=== PATIENT | female | born 1935 | race Caucasian/White ===

== ENCOUNTER 2024-12-07 01:12 | Inpatient (IN) | payer OTHER ==
[~2024-12-07] VITALS: Ht 167.6 cm; Wt 52.8 kg
[2024-12-07 01:41] LABS: Urine Bacteria None Seen /hpf (None Seen)
[2024-12-07 01:46] VITALS: PULSE 60; RESP 12; O2SAT 96
[2024-12-07 01:55] LABS: Urine Blood Negative /uL (Negative); Urine Clarity Clear (Clear); Urine Color Colorless (Yellow); Urine Protein, UAD Negative (Negative); Urine Specific Gravity 1.005 (1.001-1.035); Urine Squamous Epithelial Cell FEW /hpf (<5); Urine Urobilinogen Normal (Negative); Urine WBC 8 /HPF (0-5)
[2024-12-07 02:01] LABS: Basophils # (auto) 0.1 10 ^3/uL (0-0.2); Basophils % (auto) 0.6 % (0.0-2.0); Eosinophils # (auto) 0.1 10 ^3/uL (0-0.8); Eosinophils % (auto) 1.2 % (0.0-7.0); Hematocrit 41.4 % (36.0-46.0); Hemoglobin 13.6 g/dL (12.2-16.2); Lymphocytes # (auto) 1.7 10 ^3/uL (0.4-5.4); Lymphocytes % (auto) 14.9 % (10.0-50.0); Mean Corpuscular Hemoglobin 30.9 pg (28.0-32.0); Mean Corpuscular Hgb Conc. 32.9 g/dL (32.0-36.0); Mean Corpuscular Volume 93.8 fL (80.0-100.0); Monocytes # (auto) 1.2 10 ^3/uL (0-1.3); Monocytes % (auto) 10.7 % (0.0-12.0); Neutrophils # (auto) 8.5 10 ^3/uL (1.6-8.6); Neutrophils % (auto) 72.6 % (37.0-80.0); Nucleated Red Blood Cells % 0.1 %; Platelet Count (auto) 300 10^3/uL (140-450); Red Blood Cells 4.42 10^6/uL (4.0-5.20); Red Cell Distribution Width 14.4 % (11.8-14.3); White Blood Cell 11.7 10^3/uL (4.4-10.8)
--- NOTE | 2024-12-07 02:03 | ED.PDOC ---
History of Present Illness HPI Comments 89 y/o F is BIBA from home for c/o generalized weakness. Per EMS report, patient endorses on unprovoked and sudden onset of weakness 3 hours prior to arrival. No further associated symptoms reported. Vitals were noted to have stable and within normal limits, with exception of elevate systolic pressure within the 200's range. Patient has a history of HLD, HTN, PTCA, and 2x mini strokes in addition to Eliquis use. At time of assessment, patient inquires to use the bathroom prior to answering questions. She denies having any nausea, vomiting, diarrhea, dysuria, chest pain, or shortness of breath. 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 all IT INFRASTRUCTURE MANAGER Hx Family History Family History: Unknown Social History Smoker: Non-Smoker Alcohol: Denies ETOH Use Drugs: Denies Drug Use Lives In: Home All Other Systems: Reviewed and Negative (Comprehensive systems review obtained and negative except for what is stated in the HPI.) Physical Exam General Appearance: No Apparent Distress, Normal HEENT: Normal ENT Inspection, Pharynx Normal, TMs Normal Neck: Full Range of Motion, Non-Tender, Normal, Normal Inspection Respiratory: Chest Non-Tender, Lungs Clear, No Accessory Muscle Use, No Respiratory Distress, Normal Breath Sounds Cardiovascular: No Edema, No JVD, No Murmur, No Gallop, Normal Peripheral Pulses, Regular Rate/Rhythm Breast Exam: Deferred Gastrointestinal: No Organomegaly, Non Tender, No Pulsatile Mass, Normal Bowel Sounds, Soft Genitalia: Deferred Pelvic: Deferred Rectal: Deferred Extremities: No calf tenderness, Normal capillary refill, Normal inspection, Normal range of motion, Non-tender, No pedal edema Musculoskeletal : Apperance: Normal Neurologic: Alert, record filing clerk II-XII nml as Tested, No Motor Deficits, Normal Affect, Normal Mood, No Sensory Deficits Cerebellar Function: Normal Reflexes: Normal Skin: Dry, Normal Color, Warm Lymphatic: No Adenopathy Was a procedure done? Was a procedure done?: No Differential Dx Considerations may include: UTI, URI, viral syndrome, electrolyte imbalance, dehydration, intracranial bleed, among others X-Ray, Labs, Meds, VS Vital Signs Date Time Temp Pulse Resp B/P (MAP) Pulse Ox O2 Delivery O2 Flow Rate FiO2 12/07/24 03:56 61 14 179/78 (111) 93 12/07/24 01:46 60 12 96 Room Air* 0 21 12/07/24 01:45 60 12 195/82 (119) 96 12/07/24 01:20 98.2 65 16 202/96 (131) 96 98.2 12/07/24 01:15 59 Lab Test 12/07/24 03:00 12/07/24 01:52 12/07/24 01:32 Range/Units Troponin I High Sensitivity 25 23 </=34 ng/L White Blood Count 11.7 H 4.4-10.8 10^3/uL Red Blood Count 4.42 4.0-5.20 10^6/uL Hemoglobin 13.6 12.2-16.2 g/dL Hematocrit 41.4 36.0-46.0 % Mean Corpuscular Volume 93.8 80.0-100.0 fL Mean Corpuscular Hemoglobin 30.9 28.0-32.0 pg Mean Corpuscular Hemoglobin Concent 32.9 32.0-36.0 g/dL Red Cell Distribution Width 14.4 H 11.8-14.3 % Platelet Count 300 140-450 10^3/uL Mean Platelet Volume 8.5 6.9-10.8 fL Neutrophils (%) (Auto) 72.6 37.0-80.0 % Lymphocytes (%) (Auto) 14.9 10.0-50.0 % Monocytes (%) (Auto) 10.7 0.0-12.0 % Eosinophils (%) (Auto) 1.2 0.0-7.0 % Basophils (%) (Auto) 0.6 0.0-2.0 % Neutrophils # (Auto) 8.5 1.6-8.6 10 ^3/uL Lymphocytes # (Auto) 1.7 0.4-5.4 10 ^3/uL Monocytes # (Auto) 1.2 0-1.3 10 ^3/uL Eosinophils # (Auto) 0.1 0-0.8 10 ^3/uL Basophils # (Auto) 0.1 0-0.2 10 ^3/uL Nucleated Red Blood Cells 0.1 % Sodium Level 136 136-145 mmol/L Potassium Level 4.7 3.5-5.1 mmol/L Chloride Level 104 98-107 mmol/L Carbon Dioxide Level 24 20-31 mmol/L Anion Gap 8 5-15 Blood Urea Nitrogen 26 H 9-23 mg/dL Creatinine 1.37 H 0.550-1.02 mg/dL Glomerular Filtration Rate Calc 37 >90 mL/min BUN/Creatinine Ratio 19.0 10.0-20.0 Serum Glucose 105 74-106 mg/dL Calcium Level 9.1 8.7-10.4 mg/dL Urine Color Colorless Yellow Urine Clarity Clear Clear Urine pH 6.0 5.0-9.0 Urine Specific [place] 1.005 1.001-1.035 Urine Protein Negative Negative Urine Ketones Negative Negative Urine Blood Negative Negative /uL Urine Nitrite Negative Negative Urine Bilirubin Negative Negative Urine Urobilinogen Normal Negative mg/dL Urine Leukocyte Esterase 1+ Negative /uL Urine RBC 1 0 - 4 /hpf Urine Microscopic WBC 8 H 0-5 /HPF Urine Squamous Epithelial Cells Few <5 /hpf Urine Bacteria None seen None Seen /hpf Urine Glucose Normal Normal mg/dL [place] [id number] Ph: [phone] DIAGNOSTIC IMAGING Diagnostic Imaging Report : [id number] Signed PATIENT: KOMAL HALL ACCT: [id number] UNIT: [id number] : 1935 LOC: ER ROOM / BED: / AGE / SEX: 89 / F ADM STATUS: REG ER SERVICE 0133 ORDERING PHYSICIAN: ANGELA MEIER MD PROCEDURE(s): HWOCT - HEAD WITHOUT CONTRAST REASON: weakness, htn ORDER NUMBER(s): [id number], ACCESSION NUMBER(s): [id number] Examination: HWOCT CLINICAL INDICATION: ;weakness, htn COMPARISON: None. CONTRAST USED: None. TECHNIQUE: The examination was performed obtaining 5 mm slices without contrast. CT scan done according to ALARA (As Low as Reasonably Achievable). Multiplanar reconstructions were obtained. FINDINGS: SUPRATENTORIAL BRAIN: Cerebral Hemispheres: Mild age-related degenerative change with prominent sulci and basilar cisterns. Diffuse hypoattenuation in the deep periventricular white matter and in the vazquez radiata sequela of chronic microvascular ischemic disease. There is no midline shift or mass effect, intra or extra-axial fluid collections or hemorrhage. No acute abnormality in the basal ganglia. POSTERIOR FOSSA: The brainstem is normal and the visualized cerebellar hemispheres are unremarkable. VENTRICULAR SYSTEM: Mild age-related prominence of the ventricles. No evidence of hydrocephalus or transependymal flow of cerebrospinal fluid. SKULL BASE AND PARASELLAR REGION: The skull base is normal with no parasellar masses or abnormalities identified. Atherosclerotic calcification of the vertebral arteries and cavernous portion of bilateral internal carotid arteries. CALVARIUM AND SCALP REGION: No abnormality is seen. PARANASAL SINUSES: Mildly deviated nasal septum towards left. No significant inflammatory changes are identified in the paranasal sinuses. IMPRESSION: 1. Age-related degenerative change. Changes of chronic microvascular ischemic disease. 2. No acute intracranial abnormality or mass lesion. 3. Early changes of stroke may not be detected on CT scan, if strong clinical suspicion then suggest MRI with diffusion-weighted imaging. Electronically Signed 12/07/2024 03:48 Geraldo Padilla ATED BY: AUDI HAN MD DICTATED DATE/TIME: 12/07/24347 SIGNED BY: AUDI HAN MD SIGNED DATE/TIME: 12/07/24347 CC: [place] [id number] Ph: [phone] DIAGNOSTIC IMAGING Diagnostic Imaging Report : [id number] Signed PATIENT: KOMAL HALL ACCT: [id number] UNIT: [id number] : 1935 LOC: ER ROOM / BED: / AGE / SEX: 89 / F ADM STATUS: REG ER SERVICE 2 ORDERING PHYSICIAN: ANGELA MEIER MD PROCEDURE(s): CXRP - CHEST PORTABLE REASON: weakness ORDER NUMBER(s): [id number], ACCESSION NUMBER(s): [id number] Examination: CXRP Clinical Indication: Weakness. Comparison: None. Technique: Frontal radiograph of the chest was obtained. Findings: Patient is in rotation. Chronic appearing linear interstitial prominence and hyperlucency, likely from chronic lung disease. No pleural effusion on either side in current study. There is no pneumothorax. No evidence of cardiomegaly. Ectatic thoracic aorta with aortic knob calcification noted. No acute osseous abnormality is seen. Impression: No acute cardiopulmonary disease is seen. Electronically Signed 12/07/2024 03:31 Geraldo Padilla ATED BY: AUDI HAN MD DICTATED DATE/TIME: 12/07/24330 SIGNED BY: AUDI HAN MD SIGNED DATE/TIME: 12/07/24330 CC: Time of 1ST Reevaluation: 02:00 Reevaluation 1ST: Unchanged Patient Education/Counseling: Diagnosis, Treatment Family Education/Counseling: No Family Present Additional Information Previous visits reviewed: N/A The following tests were ordered, and results were reviewed by me: troponin, CXR, UA, CBC, BMP, EKG, head CT w/o contrast Additional Information was gathered from interviewing the following independent historians: EMS I reviewed and agreed with the following test results read by other providers: CXR, head CT w/o contrast I discussed treatment and results with medical personnel and: patient Departure 1 Departure Time of Disposition: 04:48 (Patient presented with hypertension and symptoms concerning for hypertensive emergency. Patient is receiving iv blood pressure medications requiring intensive monitoring. Data: 1. I ordered and reviewed the result of at least 3 labs including a CBC, BMP, and Urinalysis. 2. I independently interpreted the following tests: CT Brain: Which appears benign. EKG which is Normal Sinus RhythmRisk:This patient has a high risk of morbidity due to further diagnostic testing or treatment and may suffer from an acute cardiac disorder. Workup reveals hypertensive emergency and patient should be admitted for further workup. and possible expert consultation. ) Impression: Primary Impression: Hypertensive urgency Additional Impression: Generalized weakness Disposition: ADMITTED INPATIENT Admit to: Med Surg Condition: Guarded Critical Care Note Critical Care Time?: Yes Critical care comment: Hypertensive urgency Authorized and Performed by: Angela Meier MD Total critical care time: Approximately 39 minutes Due to a high probability of clinically significant, life threatening det erioration, the patient required my highest level of preparedness to intervene emergently and I personally spent this critical care time directly and personally managing the patient. This critical care time included obtaining a history; examining the patient; pulse oximetry; ordering and review of studies; arranging urgent treatment with development of a management plan; evaluation of patient's response to treatment; frequent reassessment; and, discussions with other providers. This critical care time was performed to assess and manage the high probability of imminent, life-threatening deterioration that could result in multi-organ failure. It was exclusive of separately billable procedures and treating other patients and teaching time. Please see my other sections and the rest of the note for further information on patient assessment and treatment. Stability Stability form required: No Heart Score Heart Score: Heart Score Response (Comments) Value History N/A 0 EKG N/A 0 Age N/A 0 Risk Factors N/A 0 Troponin N/A 0 Total 0 I personally scribed for ANGELA MEIER MD ([email or web address]) on 12/07/24 at 02:03. Electronically submitted by Jimy Patel ([email or web address]). I personally scribed for ANGELA MEIER MD ([email or web address]) on 12/07/24 at 03:58. Electronically submitted by Jimy Patel ([email or web address]). ANGELA MEIER MD December 07, 2024 02:03
[2024-12-07 02:11] LABS: Chloride 104 mmol/L (98-107); Potassium 4.7 mmol/L (3.5-5.1); Sodium 136 mmol/L (136-145)
[2024-12-07 02:12] LABS: Anion Gap 8 (5-15); Calcium 9.1 mg/dL (8.7-10.4); Carbon Dioxide 24 mmol/L (20-31)
[2024-12-07 02:17] LABS: Glucose 105 mg/dL (74-106)
[2024-12-07 02:22] LABS: Blood Urea Nitrogen 26 mg/dL (9-23)
--- NOTE | 2024-12-07 03:34 | DVH ---
Examination: CXRP Clinical Indication: Weakness. Comparison: None. Technique: Frontal radiograph of the chest was obtained. Findings: Patient is in rotation. Chronic appearing linear interstitial prominence and hyperlucency, likely from chronic lung disease. No pleural effusion on either side in current study. There is no pneumothorax. No evidence of cardiomegaly. Ectatic thoracic aorta with aortic knob calcification noted. No acute osseous abnormality is seen. Impression: No acute cardiopulmonary disease is seen. Electronically Signed 12/07/2024 03:31 Geraldo Padilla
--- NOTE | 2024-12-07 03:50 | DVH ---
Examination: HWOCT CLINICAL INDICATION: ;weakness, htn COMPARISON: None. CONTRAST USED: None. TECHNIQUE: The examination was performed obtaining 5 mm slices without contrast. CT scan done accor ding to ALARA (As Low as Reasonably Achievable). Multiplanar reconstructions were obtained. FINDINGS: SUPRATENTORIAL BRAIN: Cerebral Hemispheres: Mild age-related degenerative change with prominent sulci and basilar cisterns . Diffuse hypoattenuation in the deep periventricular white matter and in the vazquez radiata sequela of chronic microvascular ischemic disease. There is no midline shift or mass effect, intra or extra -axial fluid collections or hemorrhage. No acute abnormality in the basal ganglia. POSTERIOR FOSSA: The brainstem is normal and the visualized cerebellar hemispheres are unremarkable. VENTRICULAR SYSTEM: Mild age-related prominence of the ventricles. No evidence of hydrocephalus or transependymal flow of cerebrospinal fluid. SKULL BASE AND PARASELLAR REGION: The skull base is normal with no parasellar masses or abnormalitie s identified. Atherosclerotic calcification of the vertebral arteries and cavernous portion of bilat eral internal carotid arteries. CALVARIUM AND SCALP REGION: No abnormality is seen. PARANASAL SINUSES: Mildly deviated nasal septum towards left. No significant inflammatory changes a re identified in the paranasal sinuses. IMPRESSION: 1. Age-related degenerative change. Changes of chronic microvascular ischemic disease. 2. No acute intracranial abnormality or mass lesion. 3. Early changes of stroke may not be detected on CT scan, if strong clinical suspicion then suggest MRI with diffusion-weighted imaging. Electronically Signed 12/07/2024 03:48 Geraldo Padilla
[2024-12-07] MEDS ORDERED: ONDANSETRON HCL 4 MG/2 ML VIAL IV PRN (05:15)
--- NOTE | 2024-12-07 05:20 | DVHHP2 ---
History of Present Illness Reason for Visit: Generalized weakness History of Present Illness 89-year-old female presents for evaluation of generalized weakness. Patient endorses a one day history of generalized weakness with associated dizziness. On arrival to the emergency department patient was noted to be hypertensive in t he 200s. Denies headache or blurred vision. No chest pain or shortness for breath. No nausea or vomiting. Past Medical History Hypertension, dyslipidemia, CVA Past Surgical History PTCA Family History Noncontributory Smoke: No ALCOHOL: none Drugs: None Lives: with Family Review of Systems Review of Systems Review of systems are currently negative otherwise addressed in HPI. Allergies: Coded Allergies: NO KNOWN ALLERGIES (Unverified , 12/07/24) Medications Current Medications Medications Dose Ordered Sig/Geo Route Start Time Stop Time Status Last Admin Dose Admin Amiodarone HCl 200 mg DAILY PO 12/07/24 10:00 UNV Apixaban 5 mg BID PO 12/07/24 10:00 UNV Atorvastatin Calcium 40 mg HS PO 12/07/24 22:00 UNV Losartan Potassium 50 mg DAILY PO 12/07/24 10:00 UNV Metoprolol Tartrate 25 mg BID PO 12/07/24 10:00 UNV Hydralazine HCl 10 mg Q6HP PRN IV 12/07/24 05:15 UNV Ondansetron HCl 4 mg Q4HP PRN IV 12/07/24 05:15 UNV Acetaminophen 650 mg Q6HP PRN PO 12/07/24 05:15 UNV Exam Vital Signs Vital Signs Date Time Temp Pulse Resp B/P (MAP) Pulse Ox O2 Delivery O2 Flow Rate FiO2 12/07/24 03:56 61 14 179/78 (111) 93 12/07/24 01:46 Room Air* 0 21 12/07/24 01:20 98.2 98.2 Exam Gen: 89-year-old female in no apparent distress. Skin: Warm, dry, normal color and texture, no rash. HEENT: Normocephalic atraumatic, mucous membranes moist and pink. Neck: Cervical and supraclavicular nodes normal without enlargement, trachea is midline, thyroid gland is normal without masses. Pulmonary: Clear to auscultation and percussion bilaterally. Cardiac: Regular rate and rhythm. No murmur Abdomen: Soft, nontender, nondistended, bowel sounds present all 4 quadrants, no guarding, no rigidity, no organomegaly. Extremities: No cyanosis, clubbing, no edema Neuro: Cranial nerves II through XII grossly intact, normal affect and speech, no focal motor deficits. Labs/Xrays ORDERING PHYSICIAN: ANGELA FORD MD PROCEDURE(s): CXRP - CHEST PORTABLE REASON: weakness ORDER NUMBER(s): [id number], ACCESSION NUMBER(s): [id number] Examination: CXRP Clinical Indication: Weakness. Comparison: None. Technique: Frontal radiograph of the chest was obtained. Findings: Patient is in rotation. Chronic appearing linear interstitial prominence and hyperlucency, likely from chronic lung disease. No pleural effusion on either side in current study. There is no pneumothorax. No evidence of cardiomegaly. Ectatic thoracic aorta with aortic knob calcification noted. No acute osseous abnormality is seen. Impression: No acute cardiopulmonary disease is seen. Electronically Signed 12/07/2024 03:31 Geraldo Padilla RING PHYSICIAN: ANGELA FORD MD PROCEDURE(s): HWOCT - HEAD WITHOUT CONTRAST REASON: weakness, htn ORDER NUMBER(s): [id number], ACCESSION NUMBER(s): [id number] Examination: HWOCT CLINICAL INDICATION: ;weakness, htn COMPARISON: None. CONTRAST USED: None. TECHNIQUE: The examination was performed obtaining 5 mm slices without contrast. CT scan done according to ALARA (As Low as Reasonably Achievable). Multiplanar reconstructions were obtained. FINDINGS: SUPRATENTORIAL BRAIN: Cerebral Hemispheres: Mild age-related degenerative change with prominent sulci and basilar cisterns. Diffuse hypoattenuation in the deep periventricular white matter and in the vazquez radiata sequela of chronic microvascular ischemic disease. There is no midline shift or mass effect, intra or extra-axial fluid collections or hemorrhage. No acute abnormality in the basal ganglia. POSTERIOR FOSSA: The brainstem is normal and the visualized cerebellar hemispheres are unremarkable. VENTRICULAR SYSTEM: Mild age-related prominence of the ventricles. No evidence of hydrocephalus or transependymal flow of cerebrospinal fluid. SKULL BASE AND PARASELLAR REGION: The skull base is normal with no parasellar masses or abnormalities identified. Atherosclerotic calcification of the vertebral arteries and cavernous portion of bilateral internal carotid arteries. CALVARIUM AND SCALP REGION: No abnormality is seen. PARANASAL SINUSES: Mildly deviated nasal septum towards left. No significant inflammatory changes are identified in the paranasal sinuses. IMPRESSION: 1. Age-related degenerative change. Changes of chronic microvascular ischemic disease. 2. No acute intracranial abnormality or mass lesion. 3. Early changes of stroke may not be detected on CT scan, if strong clinical suspicion then suggest MRI with diffusion-weighted imaging. Electronically Signed 12/07/2024 03:48 Geraldo Padilla ATED BY: AUDI HAN MD Labs Test 12/07/24 04:53 12/07/24 01:52 12/07/24 01:32 Range/Units White Blood Count 11.7 H 4.4-10.8 10^3/uL Red Blood Count 4.42 4.0-5.20 10^6/uL Hemoglobin 13.6 12.2-16.2 g/dL Hematocrit 41.4 36.0-46.0 % Mean Corpuscular Volume 93.8 80.0-100.0 fL Mean Corpuscular Hemoglobin 30.9 28.0-32.0 pg Mean Corpuscular Hemoglobin Concent 32.9 32.0-36.0 g/dL Red Cell Distribution Width 14.4 H 11.8-14.3 % Platelet Count 300 140-450 10^3/uL Mean Platelet Volume 8.5 6.9-10.8 fL Neutrophils (%) (Auto) 72.6 37.0-80.0 % Lymphocytes (%) (Auto) 14.9 10.0-50.0 % Monocytes (%) (Auto) 10.7 0.0-12.0 % Eosinophils (%) (Auto) 1.2 0.0-7.0 % Basophils (%) (Auto) 0.6 0.0-2.0 % Neutrophils # (Auto) 8.5 1.6-8.6 10 ^3/uL Lymphocytes # (Auto) 1.7 0.4-5.4 10 ^3/uL Monocytes # (Auto) 1.2 0-1.3 10 ^3/uL Eosinophils # (Auto) 0.1 0-0.8 10 ^3/uL Basophils # (Auto) 0.1 0-0.2 10 ^3/uL Nucleated Red Blood Cells 0.1 % Sodium Level 136 136-145 mmol/L Potassium Level 4.7 3.5-5.1 mmol/L Chloride Level 104 98-107 mmol/L Carbon Dioxide Level 24 20-31 mmol/L Anion Gap 8 5-15 Blood Urea Nitrogen 26 H 9-23 mg/dL Creatinine 1.37 H 0.550-1.02 mg/dL Glomerular Filtration Rate Calc 37 >90 mL/min BUN/Creatinine Ratio 19.0 10.0-20.0 Serum Glucose 105 74-106 mg/dL Calcium Level 9.1 8.7-10.4 mg/dL Urine Color Colorless Yellow Urine Clarity Clear Clear Urine pH 6.0 5.0-9.0 Urine Specific [place] 1.005 1.001-1.035 Urine Protein Negative Negative Urine Ketones Negative Negative Urine Blood Negative Negative /uL Urine Nitrite Negative Negative Urine Bilirubin Negative Negative Urine Urobilinogen Normal Negative mg/dL Urine Leukocyte Esterase 1+ Negative /uL Urine RBC 1 0 - 4 /hpf Urine Microscopic WBC 8 H 0-5 /HPF Urine Squamous Epithelial Cells Few <5 /hpf Urine Bacteria None seen None Seen /hpf Urine Glucose Normal Normal mg/dL Assessment/Plan Assessment/Plan Assessment Hypertensive urgency Chronic kidney disease History of CVA Plan Admit the patient to [facility] to the hospitalist Echocardiogram pending Resume home medications As needed antihypertensives Continue treatment per orders. Plan discussed with: Patient My Orders Orders - MITCHEL NEAL AGACNP Procedure Category Date Status Time Amiodarone Tablet PHA 12/07/24 Logged (Cordarone Tablet) 10:00 Apixaban (Eliquis) PHA 12/07/24 Logged 10:00 Atorvastatin (Lipitor) PHA 12/07/24 Logged 22:00 Losartan Tablet PHA 12/07/24 Logged (Cozaar Tablet) 10:00 Metoprolol Tartrate PHA 12/07/24 Logged Tablet (Lopressor Ta 10:00 Hydralazine Injection PHA 12/07/24 Logged (Apresoline Inject 05:15 Admit ADMIT 12/07/24 Transmitted 05:03 Ondansetron Hcl PHA 12/07/24 Logged (Zofran) 05:15 Cardiac DIET 12/07/24 Transmitted Diet-2gna,Lofat,Lochol Breakfast Echo 2d Mode Cardiac US 12/07/24 Logged DOP 05:03 Condition: Stable [place]ER 12/07/24 In Process 05:03 Acetaminophen Tablet PHA 12/07/24 Logged (Tylenol Tablet) 05:15 Bedrest With Bathroom FLETCHER 12/07/24 In Process Privileg 05:03 Basic Metabolic Panel LAB 12/08/24 Verified 04:00 Date of Service: December 07, 2024 Billing Provider: MITCHEL NEAL Common Visit Codes: [id number] INP/OBS CARE (HIGH) MITCHEL NEAL December 07, 2024 05:20
[2024-12-07] MEDS: hydrALAZINE HCL 20 MG/ML VL IV ONE (05:27)
[2024-12-07 09:33] VITALS: PULSE 69; RESP 18; O2SAT 97
[2024-12-07] MEDS: METOPROLOL TARTRATE 25 MG TAB PO SCH (10:00)
[2024-12-07] MEDS: AMIODARONE HCL 200 MG TAB PO SCH (10:52)
[2024-12-07] MEDS: APIXABAN 5 MG TAB PO SCH (10:52)
[2024-12-07] MEDS: LOSARTAN POTASSIUM 50 MG TAB PO SCH (10:53)
[2024-12-07 14:37] VITALS: BP 139/69; PULSE 63; RESP 16; RESP 18; TEMP 98.6; O2SAT 98
[2024-12-07 14:45] VITALS: BP 139/69; PULSE 63; RESP 16; TEMP 98.6; O2SAT 95
--- NOTE | 2024-12-07 15:50 | DVHPN2 ---
Subjective Patient denies any symptoms Reviewed: Care Plan, H&P, Labs, Medications Changes from previous H/P or p: No Changes General: Per HPI Objective Vitals Vital Signs Date Time Temp Pulse Resp B/P (MAP) Pulse Ox O2 Delivery O2 Flow Rate FiO2 12/07/24 14:45 98.6 63 16 139/69 (92) 95 98.6 12/07/24 09:33 Room Air* 0 21 General Appearance: Alert, Oriented X3, Cooperative, No acute distress HEENT: Atraumatic, PERRLA Lungs: Clear to auscultation, Normal air movement Cardiovascular: Normal S1, Normal S2 Musculoskeletal: Normal sensory function, Normal motor function Skin: Dry, Intact Psych/Mental Status: Mental status NL, Mood NL Medications Current Medications Medications Dose Ordered Sig/Geo Route Start Time Stop Time Status Last Admin Dose Admin Amiodarone HCl 200 mg DAILY PO 12/07/24 10:00 12/07/24 10:52 200 MG Apixaban 5 mg BID PO 12/07/24 10:00 12/07/24 10:52 5 MG Atorvastatin Calcium 40 mg HS PO 12/07/24 22:00 Losartan Potassium 50 mg DAILY PO 12/07/24 10:00 12/07/24 10:53 50 MG Metoprolol Tartrate 25 mg BID PO 12/07/24 10:00 Hydralazine HCl 10 mg Q6HP PRN IV 12/07/24 05:15 Ondansetron HCl 4 mg Q4HP PRN IV 12/07/24 05:15 Acetaminophen 650 mg Q6HP PRN PO 12/07/24 05:15 Laboratory Results Laboratory Tests 12/07/24 01:52 Chemistry Test 12/07/24 01:52 Calcium Level 9.1 mg/dL (8.7-10.4) Urinalysis Test 12/07/24 01:32 Urine Color Colorless (Yellow) Urine Clarity Clear (Clear) Urine pH 6.0 (5.0-9.0) Urine Specific [place] 1.005 (1.001-1.035) Urine Protein Negative (Negative) Urine Ketones Negative (Negative) Urine Blood Negative /uL (Negative) Urine Nitrite Negative (Negative) Urine Bilirubin Negative (Negative) Urine Urobilinogen Normal mg/dL (Negative) Urine Leukocyte Esterase 1+ /uL (Negative) Urine RBC 1 /hpf (0 - 4) Urine Microscopic WBC 8 /HPF (0-5) H Urine Squamous Epithelial Cells Few /hpf (<5) Urine Bacteria None seen /hpf (None Seen) Urine Glucose Normal mg/dL (Normal) Labs and/or images reviewed: Labs reviewed by me, Image(s) reviewed by me Assessment/Plan Assessment/Plan Impression: -hypertensive crisis -rule out CVA/TIA -chronic kidney disease stage IIIA -history of CVA with current anticoagulation: Eliquis -history of [place] with stent Plan: -troponins negative x3. EKG unremarkable. CT scan of the head unremarkable. -continue antihypertensives -continue current anticoagulation -carotid Doppler study -echocardiogram -repeat labs in a.m. Total time spent with patient discussing and formulating plan of care: 35 minutes. This medical document was created using an electronic medical record system with [employer] dictation system. Although this document has been carefully reviewed, there may still be some phonetic and typographical errors. These areas are purely typographical due to imperfections of the software programs, and do not reflect any compromise in the patient's medical care. Plan discussed with: Patient, Other (RN) My Orders Orders - SUNG VERAS NP Procedure Category Date Status Time Complete Blood Count LAB 12/08/24 Verified 04:00 Erythrocyte LAB 12/07/24 Transmitted Sedimentation Rate 15:45 C-Reactive Protein LAB 12/07/24 Transmitted 15:45 Date of Service: December 07, 2024 Billing Provider: SUNG VERAS NP Common Visit Codes: [id number] INP/OBS CARE(HIGH) SUNG VERAS NP December 07, 2024 15:50
[2024-12-07] MEDS ORDERED: ATOR40TA52 PO (16:06)
[2024-12-07] MEDS ORDERED: APIX5TAB PO (16:06)
[2024-12-07] MEDS ORDERED: MET25T PO (16:06)
[2024-12-07] MEDS ORDERED: LOSA-534 PO (16:06)
[2024-12-07] MEDS ORDERED: AMIO200T13 PO (16:06)
[2024-12-07 16:30] LABS: Erythrocyte Sedimentation Rate 15 mm/hr (0-20)
[2024-12-07 17:40] VITALS: BP 155/76; PULSE 59; RESP 16; TEMP 97.7; O2SAT 97
--- NOTE | 2024-12-07 19:03 | DVH ---
Carotid Duplex Date: 12/07/2024 04:11 PM Clinical History: TIA, Rule out CVA Comparison: None Technique: Duplex Doppler evaluation of the extracranial carotid and vertebral arteries including col or Doppler and spectral/pulsed waveform analysis was performed. Findings: RIGHT SIDE: The peak systolic velocities are 44 cm/s in the distal CCA and 132 cm/s in the proximal ICA.The ICA/C CA ratio is 3 consistent with 50-69% stenosis.. The external carotid artery is patent with peak systolic velocity of 186 cm/s proximally. There is appropriate antegrade flow in the right vertebral artery. LEFT SIDE: The peak systolic velocities are 76 cm/s in the distal CCA and 103 cm/s in the proximal ICA.. The ICA /CCA ratio is less than 2. The external carotid artery is patent with peak systolic velocity of 86 cm/s proximally. There is appropriate antegrade flow in the left vertebral artery. IMPRESSION: 1. 50-69% stenosis on the right. 2. No hemodynamically significant stenosis noted in the left carotid system. 3. Reference: Radiology 2003; 229:340-346
[2024-12-07 21:00] VITALS: BP 146/70; PULSE 59; RESP 20; TEMP 97.5; O2SAT 97
[2024-12-08] VITALS (8 sets, daily range): BP systolic 125–159; BP diastolic 50–77; PULSE 46–63; RESP 16–20; TEMP 97.5–98; O2SAT 95–97
[2024-12-08] MEDS: ATORVASTATIN 20 MG TAB PO SCH (00:36)
[2024-12-08 06:14] LABS: Basophils # (auto) 0.1 10 ^3/uL (0-0.2); Basophils % (auto) 0.7 % (0.0-2.0); Eosinophils # (auto) 0.1 10 ^3/uL (0-0.8); Eosinophils % (auto) 1.3 % (0.0-7.0); Hematocrit 43.6 % (36.0-46.0); Hemoglobin 14.5 g/dL (12.2-16.2); Lymphocytes # (auto) 1.7 10 ^3/uL (0.4-5.4); Lymphocytes % (auto) 18.7 % (10.0-50.0); Mean Corpuscular Hemoglobin 31.4 pg (28.0-32.0); Mean Corpuscular Hgb Conc. 33.2 g/dL (32.0-36.0); Mean Corpuscular Volume 94.4 fL (80.0-100.0); Monocytes # (auto) 1.2 10 ^3/uL (0-1.3); Monocytes % (auto) 12.8 % (0.0-12.0); Neutrophils # (auto) 6.1 10 ^3/uL (1.6-8.6); Neutrophils % (auto) 66.5 % (37.0-80.0); Platelet Count (auto) 308 10^3/uL (140-450); Red Blood Cells 4.62 10^6/uL (4.0-5.20); Red Cell Distribution Width 14.1 % (11.8-14.3); White Blood Cell 9.2 10^3/uL (4.4-10.8)
[2024-12-08 06:24] LABS: Chloride 104 mmol/L (98-107); Potassium 4.9 mmol/L (3.5-5.1); Sodium 139 mmol/L (136-145)
[2024-12-08 06:25] LABS: Anion Gap 9 (5-15); Calcium 9.4 mg/dL (8.7-10.4); Carbon Dioxide 26 mmol/L (20-31)
[2024-12-08 06:30] LABS: BUN/Creatinine Ratio 15.9 (10.0-20.0); Blood Urea Nitrogen 20 mg/dL (9-23); Glucose 86 mg/dL (74-106)
--- NOTE | 2024-12-08 14:59 | DVHPN2 ---
Subjective Patient denies any symptoms Reviewed: Care Plan, H&P, Labs, Medications Changes from previous H/P or p: No Changes General: Per HPI Objective Vitals Vital Signs Date Time Temp Pulse Resp B/P (MAP) Pulse Ox O2 Delivery O2 Flow Rate FiO2 12/08/24 12:44 97.6 50 20 125/64 (84) 97 97.6 12/07/24 14:37 Room Air* 0 21 Intake/Output Intake and Output 12/08/24 07:00 Intake Total 750 ml Balance 750 ml Intake Oral 150 ml Other 600 ml # Voids 4 General Appearance: Alert, Oriented X3, Cooperative, No acute distress HEENT: Atraumatic, PERRLA Lungs: Clear to auscultation, Normal air movement Cardiovascular: Normal S1, Normal S2 Musculoskeletal: Normal sensory function, Normal motor function Skin: Dry, Intact Psych/Mental Status: Mental status NL, Mood NL Medications Current Medications Medications Dose Ordered Sig/Geo Route Start Time Stop Time Status Last Admin Dose Admin Apixaban 5 mg BID PO 12/07/24 10:00 12/08/24 10:20 5 MG Atorvastatin Calcium 40 mg HS PO 12/07/24 22:00 12/08/24 00:36 40 MG Losartan Potassium 50 mg DAILY PO 12/07/24 10:00 12/07/24 10:53 50 MG Hydralazine HCl 10 mg Q6HP PRN IV 12/07/24 05:15 Ondansetron HCl 4 mg Q4HP PRN IV 12/07/24 05:15 Acetaminophen 650 mg Q6HP PRN PO 12/07/24 05:15 Hydralazine HCl 10 mg Q6HP PRN IV 12/08/24 15:00 UNV Laboratory Results Laboratory Tests 12/08/24 05:16 Chemistry Test 12/08/24 05:16 Calcium Level 9.4 mg/dL (8.7-10.4) Urinalysis Test 12/07/24 01:32 Urine Color Colorless (Yellow) Urine Clarity Clear (Clear) Urine pH 6.0 (5.0-9.0) Urine Specific [place] 1.005 (1.001-1.035) Urine Protein Negative (Negative) Urine Ketones Negative (Negative) Urine Blood Negative /uL (Negative) Urine Nitrite Negative (Negative) Urine Bilirubin Negative (Negative) Urine Urobilinogen Normal mg/dL (Negative) Urine Leukocyte Esterase 1+ /uL (Negative) Urine RBC 1 /hpf (0 - 4) Urine Microscopic WBC 8 /HPF (0-5) H Urine Squamous Epithelial Cells Few /hpf (<5) Urine Bacteria None seen /hpf (None Seen) Urine Glucose Normal mg/dL (Normal) Microbiology Microbiology Date/Time Source Procedure Growth Status 12/08/24 06:30 Nose MRSA Screen - Final Methicillin Resistant S.aureus Complete Labs and/or images reviewed: Labs reviewed by me, Image(s) reviewed by me Assessment/Plan Assessment/Plan Impression: -hypertensive crisis -rule out CVA/TIA -chronic kidney disease stage IIIA -history of CVA with current anticoagulation: Eliquis -history of [place] with stent Plan: -events: Patient carotid Doppler study with noted carotid stenosis. Patient also found to have bradycardia over the past 12 hours. -stop metoprolol tartrate and amiodarone. Blood pressure control with JHON inhibitor, p.r.n. hydralazine -echocardiogram: Pending results -cardiology consultation for dizziness, symptomatic bradycardia, AFib management -continue antihypertensives -continue current anticoagulation: Continue Eliquis, decreased to 2.5 mg p.o. b.i.d. -repeat labs in a.m. Total time spent with patient discussing and formulating plan of care: 35 minutes. This medical document was created using an electronic medical record system with [employer] dictation system. Although this document has been carefully reviewed, there may still be some phonetic and typographical errors. These areas are purely typographical due to imperfections of the software programs, and do not reflect any compromise in the patient's medical care. Plan discussed with: Patient, Other (RN) My Orders Orders - SUNG VERAS [employer] Procedure Category Date Status Time Carotid Duplx W Color US 12/07/24 Resulted DOP 15:46 Transfer Orders XFER 12/08/24 Transmitted 14:21 Hydralazine Injection PHA 12/08/24 Logged (Apresoline Inject 15:00 * Cardiology Consult CONS 12/08/24 Transmitted 14:54 Mupirocin 2% Oint PHA 12/08/24 Transmitted Mrsa Nares (Bactroban 22:00 Blood Culture ROMEO 12/08/24 Transmitted 14:56 Complete Blood Count LAB 12/09/24 Verified 04:00 Date of Service: December 08, 2024 Billing Provider: SUNG VERAS NP Common Visit Codes: [id number] INP/OBS CARE(HIGH) SUNG VERAS NP December 08, 2024 14:59
[2024-12-08] MEDS ORDERED: hydrALAZINE HCL 20 MG/ML VL IV PRN (15:00)
--- NOTE | 2024-12-08 17:35 | DVHCONRES ---
Date Seen: December 08, 2024 Resident Creating Document: HARVINDER LONG RESIDENT Referring Physician Curtis Matos NP Reason for Consultation Afib and bradycardia History of Present Illness 89-year-old female with past medical history of hypertension, dyslipidemia, stroke in November at [facility], history of ID 2008 status post PTCI, Afib complaints of generalized weakness and dizziness that started on Friday. Patient mentioned that her blood pressure was in 200s and that is why she decided to come to the ER. Denied any chest pain, shortness of breath, orthopnea, PND, nausea, vomiting, diarrhea, motor deficit. Patient was found to be bradycardic after which medication amiodarone and metoprolol were stopped. Patient is currently not mentioning of any dizziness Past medical history Atrial fibrillation, Hypertension, dyslipidemia, stroke, [place] Past surgical history PTCA Medication history Amiodarone, Eliquis, atorvastatin, losartan, metoprolol Social History Ex-smoker quit in 2007, smoked for 20 years, 3/4 packs per year Family History: Patient reports no known family medical history. Allergies: Coded Allergies: NO KNOWN ALLERGIES (Unverified , 12/07/24) Home Meds Reported Medications Metoprolol Tartrate (Lopressor) 25 Mg Tb, 1 TAB PO BID 12/07/24 Losartan Potassium (Losartan Potassium) 50 Mg Tab, 1 TAB PO DAILY 12/07/24 Atorvastatin Calcium (ATORVASTATIN CALCIUM) 40 Mg Tab, 1 TAB PO DAILY 12/07/24 Apixaban Base (ELIQUIS) 5 Mg Tab, 1 TAB PO BID 12/07/24 Amiodarone HCl (Amiodarone HCl) 200 Mg Tab, 1 TAB PO DAILY 12/07/24 Current Medications Current Medications Medications (Trade) Dose Ordered Sig/Geo Route PRN Reason Start Time Stop Time Status Last Admin Atorvastatin Calcium (Lipitor) 40 mg HS PO 12/07/24 22:00 12/08/24 00:36 Hydralazine HCl (Apresoline Injection) 10 mg Q6HP PRN IV SBP>150 12/08/24 15:00 Mupirocin (Bactroban 2% Ointment) 1 applic BID EACHNOSTRI 12/08/24 22:00 12/13/24 21:59 Apixaban (Eliquis) 2.5 mg BID PO 12/08/24 22:00 Review of Systems As Explained in the HPI Vital Signs Vital Signs Date Time Temp Pulse Resp B/P (MAP) Pulse Ox O2 Delivery O2 Flow Rate FiO2 12/08/24 12:44 97.6 50 20 125/64 (84) 97 97.6 12/08/24 07:30 Room Air* 0 21 Physical Exam Examination General Appearance: Alert, Oriented X3, Cooperative, No acute distress HEENT: EOMI Respiratory: Clear to auscultation, Normal air movement Cardiovascular: Regular rate, Normal S1, Normal S2 Abdominal: Normal bowel sounds Extremities: No cyanosis, No edema, Normal pulses, No tenderness/swelling Skin: No rashes, No breakdown Neuro: Normal gait, Normal speech, Strength at 5/5 X4 ext, Normal tone, Sensation intact, Cranial nerves 3-12 NL, Reflexes 2+ Psych/Mental Status: Mental status NL, Mood NL Labs/Diagnostic Data Labs Test 12/08/24 05:16 12/07/24 04:53 12/07/24 01:52 12/07/24 01:32 Range/Units White Blood Count 9.2 4.4-10.8 10^3/uL Red Blood Count 4.62 4.0-5.20 10^6/uL Hemoglobin 14.5 12.2-16.2 g/dL Hematocrit 43.6 36.0-46.0 % Mean Corpuscular Volume 94.4 80.0-100.0 fL Mean Corpuscular Hemoglobin 31.4 28.0-32.0 pg Mean Corpuscular Hemoglobin Concent 33.2 32.0-36.0 g/dL Red Cell Distribution Width 14.1 11.8-14.3 % Platelet Count 308 140-450 10^3/uL Mean Platelet Volume 9.5 6.9-10.8 fL Neutrophils (%) (Auto) 66.5 37.0-80.0 % Lymphocytes (%) (Auto) 18.7 10.0-50.0 % Monocytes (%) (Auto) 12.8 H 0.0-12.0 % Eosinophils (%) (Auto) 1.3 0.0-7.0 % Basophils (%) (Auto) 0.7 0.0-2.0 % Neutrophils # (Auto) 6.1 1.6-8.6 10 ^3/uL Lymphocytes # (Auto) 1.7 0.4-5.4 10 ^3/uL Monocytes # (Auto) 1.2 0-1.3 10 ^3/uL Eosinophils # (Auto) 0.1 0-0.8 10 ^3/uL Basophils # (Auto) 0.1 0-0.2 10 ^3/uL Nucleated Red Blood Cells 0.0 % Sodium Level 139 136-145 mmol/L Potassium Level 4.9 3.5-5.1 mmol/L Chloride Level 104 98-107 mmol/L Carbon Dioxide Level 26 20-31 mmol/L Anion Gap 9 5-15 Blood Urea Nitrogen 20 9-23 mg/dL Creatinine 1.26 H 0.550-1.02 mg/dL Glomerular Filtration Rate Calc 41 >90 mL/min BUN/Creatinine Ratio 15.9 10.0-20.0 Serum Glucose 86 74-106 mg/dL Calcium Level 9.4 8.7-10.4 mg/dL Troponin I High Sensitivity 28 </=34 ng/L Erythrocyte Sedimentation Rate 15 0-20 mm/hr C-Reactive Protein High Sensitivity 0.46 <1.0 mg/dL Urine Color Colorless Yellow Urine Clarity Clear Clear Urine pH 6.0 5.0-9.0 Urine Specific [place] 1.005 1.001-1.035 Urine Protein Negative Negative Urine Ketones Negative Negative Urine Blood Negative Negative /uL Urine Nitrite Negative Negative Urine Bilirubin Negative Negative Urine Urobilinogen Normal Negative mg/dL Urine Leukocyte Esterase 1+ Negative /uL Urine RBC 1 0 - 4 /hpf Urine Microscopic WBC 8 H 0-5 /HPF Urine Squamous Epithelial Cells Few <5 /hpf Urine Bacteria None seen None Seen /hpf Urine Glucose Normal Normal mg/dL Microbiology Date/Time Source Procedure Growth Status 12/08/24 06:30 Nose MRSA Screen - Final Methicillin Resistant S.aureus Complete Plan/Recommendation Assessment/plan # presyncope due to? Bradycardia ? Carotid artery stenosis EKG shows sinus bradycardia Normal troponins # bradycardia, sinus bradycardia, likely due to sinoatrial [SA] anisa-blocking medications, ?Tachy-nate Syndrome -metoprolol and amiodarone held by primary team # Right sided carotid artery stenosis, ? symptomatic -seen on ultrasound Doppler # hypertensive crisis, currently resolved # history of AFib, currently sinus bradycardia Chadvasc score Has bled score Currently on Eliquis #history of stroke, likey emboic patient had left hand numbness in month of November after which she was told by [facility] that she had stroke based on imaging and right sided carotid artery stenosis correlates to the site of stroke. #History of ID s/p PTCA Plan monitored through telemetry Echocardiogram, awaiting results Avoid Agents causing bradycardia including beta blockers, antiarrhythmics Keep potassium greater than four, magnesium greater than two Losartan, hydralazine for Hypertension Hold sinus node blocking agents and monitor the patient for any episode of Paroxysmal Afib, if present will consider pacemaker for Tachy-Nate Syndrome. kindly made the patient to check for chronotropic incompetence Not planning for Carotid artery stent placement considering recent stroke and risk of haemorhagic stroke with the procedure within 1 month of previous stroke Case discussion with Dr Holloway. Plan discussed with: Patient, Other HARVINDER LONG RESIDENT December 08, 2024 17:35
[2024-12-08] MEDS: hydrALAZINE HCL 20 MG/ML VL IV PRN (18:06)
[2024-12-08] MEDS: ACETAMINOPHEN 325 MG TAB PO PRN (20:04)
[2024-12-08] MEDS: APIXABAN 2.5 MG TAB PO SCH (21:49)
[2024-12-08] MEDS: MUPIROCIN 2% OINT 15gm or 22gm FOR MRSA NARES EACHNOSTRI SCH (21:53)
[2024-12-09] VITALS (7 sets, daily range): BP systolic 98–151; BP diastolic 61–71; PULSE 55–63; RESP 16–18; TEMP 98–98.6; O2SAT 96–97
[2024-12-09 08:41] LABS: Basophils # (auto) 0.1 10 ^3/uL (0-0.2); Basophils % (auto) 0.6 % (0.0-2.0); Eosinophils # (auto) 0.1 10 ^3/uL (0-0.8); Eosinophils % (auto) 1.4 % (0.0-7.0); Hematocrit 44.8 % (36.0-46.0); Hemoglobin 14.9 g/dL (12.2-16.2); Lymphocytes % (auto) 22.9 % (10.0-50.0); Mean Corpuscular Hemoglobin 30.9 pg (28.0-32.0); Mean Corpuscular Hgb Conc. 33.2 g/dL (32.0-36.0); Monocytes # (auto) 0.9 10 ^3/uL (0-1.3); Monocytes % (auto) 10.9 % (0.0-12.0); Neutrophils # (auto) 5.5 10 ^3/uL (1.6-8.6); Neutrophils % (auto) 64.2 % (37.0-80.0); Platelet Count (auto) 333 10^3/uL (140-450); Red Blood Cells 4.81 10^6/uL (4.0-5.20); Red Cell Distribution Width 14.2 % (11.8-14.3); White Blood Cell 8.5 10^3/uL (4.4-10.8)
--- NOTE | 2024-12-09 09:47 | ECG ---
[facility] Test Date: 2024-12-07 Test Time: 01:15:14 Pat Name: KOMAL HALL Department: ED Room: 0237T A Gender: F Neuroscientist: PEDRO : 1935 Requested By: EMERGENCY EMERGENCY Order Number: [id number] Reading MD: Aly Holloway Measurements Intervals [place] Rate: 59 P: 39 [place]: 147 QRS: 18 QRSD: 100 T: 93 QT: 400 QTc: 397 Interpretive Statements Sinus rhythm Multiple premature complexes, vent & supraven Probable left atrial enlargement LVH with secondary repolarization abnormality Electronically Signed On 12-12-2024 21:52:04 PDT by Aly Holloway Please click the below link to view image of tracing.
--- NOTE | 2024-12-09 11:44 | DVHPN2 ---
Progress Note Date Seen: December 09, 2024 Resident Creating Document: HARVINDER LONG RESIDENT Medical Necessity Reason Pt with a Central, PICC or Fol: No Subjective Review of Systems History of Present Illness 89-year-old female with past medical history of hypertension, dyslipidemia, stroke in November at [facility], history of [place] 2008 status post PTCI, Afib complaints of generalized weakness and dizziness that started on Friday. Patient mentioned that her blood pressure was in 200s and that is why she decided to come to the ER. Denied any chest pain, shortness of breath, orthopnea, PND, nausea, vomiting, diarrhea, motor deficit. Patient was found to be bradycardic after which medication amiodarone and metoprolol were stopped. Patient is currently not mentioning of any dizziness Past medical history Atrial fibrillation, Hypertension, dyslipidemia, stroke, [place] Past surgical history PTCA Medication history Amiodarone, Eliquis, atorvastatin, losartan, metoprolol Social History Ex-smoker quit in 2007, smoked for 20 years, 3/4 packs per year Interval Events Patient mentioning of improvement in her complains, does not mention of any complaints of dizziness, headache, chest pain, and shortness of breath. Objective vital signs Vital Sign Date Time Temp Pulse Resp B/P (MAP) Pulse Ox O2 Delivery O2 Flow Rate FiO2 12/09/24 09:16 143/71 12/09/24 09:00 98.4 61 17 96 98.4 12/08/24 20:00 Room Air* 0 21 Total Intake and Output 12/08/24 12/08/24 12/09/24 15:00 23:00 07:00 Intake Total 520 ml 300 ml Balance 520 ml 300 ml medications Current Medications Medications Dose Ordered Sig/Geo Route Start Time Stop Time Status Last Admin Dose Admin Atorvastatin Calcium 40 mg HS PO 12/07/24 22:00 12/08/24 21:50 Losartan Potassium 50 mg DAILY PO 12/07/24 10:00 12/09/24 09:16 Hydralazine HCl 10 mg Q6HP PRN IV 12/07/24 05:15 12/08/24 18:06 Ondansetron HCl 4 mg Q4HP PRN IV 12/07/24 05:15 Acetaminophen 650 mg Q6HP PRN PO 12/07/24 05:15 12/08/24 20:04 Hydralazine HCl 10 mg Q6HP PRN IV 12/08/24 15:00 Mupirocin 1 applic BID EACHNOSTRI 12/08/24 22:00 12/13/24 21:59 Apixaban 2.5 mg BID PO 12/08/24 22:00 12/09/24 09:15 Examination Examination General Appearance: Alert, Oriented X3, Cooperative, No acute distress HEENT: EOMI Respiratory: Clear to auscultation, Normal air movement Cardiovascular: Regular rate, Normal S1, Normal S2 Abdominal: Normal bowel sounds Extremities: No cyanosis, No edema, Normal pulses, No tenderness/swelling Skin: No rashes, No breakdown Neuro: Normal gait, Normal speech, Strength at 5/5 X4 ext, Normal tone, Sensation intact, Cranial nerves 3-12 NL, Reflexes 2+ Psych/Mental Status: Mental status NL, Mood NL laboratory and microbiology Laboratory Tests 12/09/24 08:18 12/08/24 05:16 Test 12/08/24 05:16 Range/Units Serum Glucose 86 74-106 mg/dL Microbiology Date/Time Source Procedure Growth Status 12/08/24 06:30 Nose MRSA Screen - Final Methicillin Resistant S.aureus Complete Labs and/or images reviewed: Labs reviewed by me, Image(s) reviewed by me Problem List/Assessment/Plan Problem List/Assessment/Plan Assessment/plan # presyncope due to? Bradycardia ? Carotid artery stenosis EKG shows sinus bradycardia Normal troponins # bradycardia, sinus bradycardia, likely due to sinoatrial [SA] anisa-blocking medications, ?Tachy-nate Syndrome -metoprolol and amiodarone held by primary team -HR increased to 73 from 64 on walking without dropping BP # Right sided carotid artery stenosis, ? symptomatic -seen on ultrasound Doppler # hypertensive crisis, currently resolved # history of AFib, currently sinus bradycardia Chadvasc score Has bled score Currently on Eliquis #history of stroke, likey emboic from Afib patient had left hand numbness in month of November after which she was told by [facility] that she had stroke based on imaging and right sided carotid artery stenosis correlates to the site of stroke. 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 Not planning for Carotid artery stent placement considering recent stroke and risk of haemorhagic stroke with the procedure within 1 month of previous stroke Since patient had a recent stroke which showed multiple infarcts on bilateral hemispheres, we advise to continue on low dose amiodarone 200mg daily dose. Outpatient follow up with cardiology for Loop Recorder/Event recorder monitoring Case discussion with Dr Holloway. Plan discussed with: Other HARVINDER LONG RESIDENT December 09, 2024 11:44
[2024-12-09] MEDS ORDERED: AMLO1TAB23 PO (14:21)
[2024-12-09] MEDS ORDERED: APIX2.5T PO (14:21)
--- NOTE | 2024-12-09 14:26 | DVHDS2 ---
Discharge Summary Date of Admission December 07, 2024 at 05:03 Date of Discharge: December 09, 2024 Admitting Diagnosis Hypertensive urgency Labs/Diagnostic Data: Laboratory Results Test 12/09/24 08:18 12/08/24 05:16 12/07/24 04:53 12/07/24 01:52 White Blood Count 8.5 10^3/uL (4.4-10.8) Red Blood Count 4.81 10^6/uL (4.0-5.20) Hemoglobin 14.9 g/dL (12.2-16.2) Hematocrit 44.8 % (36.0-46.0) Mean Corpuscular Volume 93.0 fL (80.0-100.0) Mean Corpuscular Hemoglobin 30.9 pg (28.0-32.0) Mean Corpuscular Hemoglobin Concent 33.2 g/dL (32.0-36.0) Red Cell Distribution Width 14.2 % (11.8-14.3) Platelet Count 333 10^3/uL (140-450) Mean Platelet Volume 9.3 fL (6.9-10.8) Neutrophils (%) (Auto) 64.2 % (37.0-80.0) Lymphocytes (%) (Auto) 22.9 % (10.0-50.0) Monocytes (%) (Auto) 10.9 % (0.0-12.0) Eosinophils (%) (Auto) 1.4 % (0.0-7.0) Basophils (%) (Auto) 0.6 % (0.0-2.0) Neutrophils # (Auto) 5.5 10 ^3/uL (1.6-8.6) Lymphocytes # (Auto) 2.0 10 ^3/uL (0.4-5.4) Monocytes # (Auto) 0.9 10 ^3/uL (0-1.3) Eosinophils # (Auto) 0.1 10 ^3/uL (0-0.8) Basophils # (Auto) 0.1 10 ^3/uL (0-0.2) Nucleated Red Blood Cells 0.0 % Sodium Level 139 mmol/L (136-145) Potassium Level 4.9 mmol/L (3.5-5.1) Chloride Level 104 mmol/L (98-107) Carbon Dioxide Level 26 mmol/L (20-31) Anion Gap 9 (5-15) Blood Urea Nitrogen 20 mg/dL (9-23) Creatinine 1.26 mg/dL (0.550-1.02) Glomerular Filtration Rate Calc 41 mL/min (>90) BUN/Creatinine Ratio 15.9 (10.0-20.0) Serum Glucose 86 mg/dL (74-106) Calcium Level 9.4 mg/dL (8.7-10.4) Troponin I High Sensitivity 28 ng/L (</=34) Erythrocyte Sedimentation Rate 15 mm/hr (0-20) C-Reactive Protein High Sensitivity 0.46 mg/dL (<1.0) Test 12/07/24 01:32 Urine Color Colorless (Yellow) Urine Clarity Clear (Clear) Urine pH 6.0 (5.0-9.0) Urine Specific [place] 1.005 (1.001-1.035) Urine Protein Negative (Negative) Urine Ketones Negative (Negative) Urine Blood Negative /uL (Negative) Urine Nitrite Negative (Negative) Urine Bilirubin Negative (Negative) Urine Urobilinogen Normal mg/dL (Negative) Urine Leukocyte Esterase 1+ /uL (Negative) Urine RBC 1 /hpf (0 - 4) Urine Microscopic WBC 8 /HPF (0-5) Urine Squamous Epithelial Cells Few /hpf (<5) Urine Bacteria None seen /hpf (None Seen) Urine Glucose Normal mg/dL (Normal) Other Laboratory Tests 12/09/24 08:18 12/08/24 05:16 Brief Hx & Hospital Course: History of Present Illness 89-year-old female presents for evaluation of generalized weakness. Patient endorses a one day history of generalized weakness with associated dizziness. On arrival to the emergency department patient was noted to be hypertensive in the 200s. Denies headache or blurred vision. No chest pain or shortness for breath. No nausea or vomiting. Course of hospitalization: Patient was started on metoprolol tartrate, amiodarone, as well as losartan for blood pressure control. The patient was noted to have decreased heart rate in the 40s. Patient was placed on telemetry. Cardiology consultation was obtained. Carotid Doppler study was performed, finding 50% to 69% stenosis of the right internal carotid artery. Echocardiogram was performed. Patient was restarted on Eliquis, decreased to 2.5 mg p.o. b.i.d. given her age. At this time the patient's blood pressure has improved. She has been asymptomatic. 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 Patient has been cleared by Cardiology. She will follow up with her PCP and obtain referral to airway traffic controller for outpatient event monitoring as well as alteration of her home medications to omit beta blockers, with rate control only with amiodarone 200 mg p.o. daily. She will also be continued on losartan 50 mg p.o. daily and will start amlodipine 10 mg p.o. daily at home. Patient's home dose of Eliquis will also be decreased to 2.5 mg p.o. twice a day. Patient was agreeable with discharge plan. All questions answered. Physical examination General: Alert and Oriented x3. No acute distress. Well-nourished. Eyes: EOMI. Anicteric. HENT: Moist mucous membranes. Lungs: Clear to auscultation bilaterally. No accessory muscle use. Cardiovascular: Regular rate and rhythm. No murmur. No JVD. Abdomen: Soft, non-tender and non-distended. No palpable masses. Extremities: No edema. Non-tender. Skin: No rashes or lesions. Warm. Neurologic: No focal neurological deficits. CN II-XII grossly intact, but not individually tested. Psychiatric: Cooperative. Appropriate mood and affect. Total time spent with patient discussing and formulating plan of care: 35 minutes. This medical document was created using an electronic medical record system with [employer] dictation system. Although this document has been carefully reviewed, there may still be some phonetic and typographical errors. These areas are purely typographical due to imperfections of the software programs, and do not reflect any compromise in the patient's medical care. Consults/Reason for consult Cardiology: Bradycardia, carotid stenosis Condition at Discharge: Fair Final Diagnosis/Problems List Hypertensive crisis Secondary diagnosis: -hypertensive crisis -ruled out CVA/TIA -chronic kidney disease stage IIIA -history of CVA with current anticoagulation: Eliquis -history of MT with stent -carotid stenosis Discharge Disposition: Home Discharge Instruct/Medications Diet: Cardiac 2g Na,low cholest (2 gm sodium, low cholesterol) Activity: No Restrictions, As Tolerated Follow Up/Referral: Follow up with PCP in 1-2 weeks Follow up with Cardiology Medications: Refer to medication reconciliation and discharge medications 36 Discharge Statement: "Patient was advised to return to the ER or call 911 if any headaches, dizziness, shortness of breath, chest pain, abdominal pain, bleeding, fevers, or worsening of medical condition. Patient was counseled about treatment plan, medications, possible side effects, patientverbalized understanding. All questions were answered to the best of my ability. This discharge took greater then 30 minutes in planning, reviewing documentation, counseling the patient, and discussing with other team members." ASSESSMENT ASSESSMENT Assessment Date of Service: December 09, 2024 Billing Provider: SUNG VERAS NP Common Visit Codes: 01879-QRL/OBS DISCH DAY >30min SUNG VERAS NP December 09, 2024 14:26
--- NOTE | 2024-12-10 08:53 | DVHSR ---
APPROVED REPORT EXAM: Two-dimensional and M-mode echocardiogram with Doppler and color Doppler. Blood Pressure: 139/59 mmHg INDICATION Hypertention RISK FACTORS Height: 5'6", Weight: 145 DIMENSIONS LVDd4.2 (3.8-5.7cm)LA (2D)3.4 (1.9-4.0cm)Aortic Root3.1 (2.0-3.7cm) LVDs2.6 (2.5-4.0cm)LA (MM) (1.9-4.0cm)Aortic Cusp Exc1.4 (1.5-2.0cm) EF (%) 65.0 (55-70%)Rt. Atrium3.2 (1.9-4.0cm)Asc. Aorta cm IVSd1.4 (0.7-1.1cm)RV (D)3.4 (1.8-2.4cm) PWd1.2 (0.7-1.1cm) Mitral Valve MitralMitral Stenosis E wave0.72m/sMV Mean GR.mmHg A wave1.15m/sMV Peak GR.mmHg E/A ratio0.62D MVAcm2 DECEL [id number] 1/2 [place] Aortic Valve Aortic ValveAortic Stenosis V11.35m/Luiz Mean GR.4mmHg V21.84m/Luiz Peak GR.14mmHg LVOT Diameter1.9 (1.8-2.4cm)Doppler AVA2.08cm2 AI P 1/2 Nrit657.29ms Pulmonic Valve V20.95m/s Tricuspid Valve TR Velocity2.67m/s [id number] Other Information Technically limited study due to body habitus. Conclusion Sinus rhythm. Concentric LVH. Right ventricular enlargement of mild degree. Mild mitral annular calcification. Left ventricular function is preserved. EF of 60% with normal RV function. Mild MR. [id number] AI. Moderate TR. No pericardial effusion masses or vegetations.
== END 2024-12-09 19:57 | disposition home or self-care (01) | DRG 305 ==
LOC: EDBD 01:12 → ER 01:15 → OVERFLOW 05:03 → TELE-EAST 05:18 → WEST WING 23:59 → TELE-WESTW 12-08 17:10 → TELE-EAST 12-08 19:08
PROVIDERS: ADMIT Nurse Practitioner Acute Care; ATTEND Nurse Practitioner Acute Care
DX: I16.0 Hypertensive urgency (principal); I65.21 Occlusion and stenosis of right carotid artery; N18.31 Chronic kidney disease, stage 3a; I12.9 Hypertensive chronic kidney disease with stage 1 through stage 4 chronic kidney disease, or unspecified chronic kidney disease; I48.91 Unspecified atrial fibrillation; E78.5 Hyperlipidemia, unspecified; I25.2 Old myocardial infarction; Z79.899 Other long term (current) drug therapy; Z87.891 Personal history of nicotine dependence; Z79.01 Long term (current) use of anticoagulants; Z98.61 Coronary angioplasty status; Z86.73 Personal history of transient ischemic attack (TIA), and cerebral infarction without residual deficits
CPT/HCPCS: 36415; 70450; 71045; 80048; 81001; 84484; 85025; 85652; 86141; 87040; 87081; 93005; 93306; 93886; 96374; 99291; G0378

== ENCOUNTER → 2025-05-24 | Outpatient (CLI) | payer OTHER ==
[~2025-05-24] MED LIST: AMIO200T13 PO; AMLO1TAB23 PO; APIX2.5T PO; ATOR40TA52 PO; LOSA-534 PO
[2025-05-24 13:11] LABS: Hematocrit 40.7 % (36.0-46.0); Hemoglobin 13.3 g/dL (12.2-16.2); Mean Corpuscular Hemoglobin 31.2 pg (28.0-32.0); Mean Corpuscular Volume 95.7 fL (80.0-100.0); Nucleated Red Blood Cells % 0.1 %
[2025-05-24 14:13] LABS: Alanine Aminotransferase 23 U/L (7-40); Albumin 4.5 g/dL (3.2-4.8); Alkaline Phosphatase 78 U/L (46-116); Anion Gap 13 (5-15); BUN/Creatinine Ratio 17.3 (10.0-20.0); Bilirubin, Total 0.3 mg/dL (0.2-1.0); Calcium 9.7 mg/dL (8.7-10.4); Carbon Dioxide 25 mmol/L (20-31); Chloride 103 mmol/L (98-107); Glucose 95 mg/dL (74-106); Potassium 4.6 mmol/L (3.5-5.1); Sodium 141 mmol/L (136-145); Total Protein 7.6 g/dL (5.7-8.2)
[2025-05-24 14:14] LABS: Blood Urea Nitrogen 32 mg/dL (9-23)
== END | disposition home or self-care (01) ==
LOC: LAB 12:45
PROVIDERS: ATTEND Internal Medicine
DX: I10 Essential (primary) hypertension (principal)
CPT/HCPCS: 36415; 80053; 85025

== ENCOUNTER 2025-06-07 14:38 | Outpatient (CLI) | payer OTHER ==
[2025-06-07 16:03] LABS: Hematocrit 36.2 % (36.0-46.0); Hemoglobin 12.1 g/dL (12.2-16.2); Mean Corpuscular Hemoglobin 31.8 pg (28.0-32.0); Mean Corpuscular Volume 95.2 fL (80.0-100.0); Nucleated Red Blood Cells % 0.0 %
[2025-06-07 16:43] LABS: Alanine Aminotransferase 33 U/L (7-40); Albumin 4.3 g/dL (3.2-4.8); Alkaline Phosphatase 75 U/L (46-116); Anion Gap 11 (5-15); BUN/Creatinine Ratio 17.2 (10.0-20.0); Bilirubin, Total 0.3 mg/dL (0.2-1.0); Calcium 9.8 mg/dL (8.7-10.4); Carbon Dioxide 27 mmol/L (20-31); Chloride 102 mmol/L (98-107); Potassium 4.7 mmol/L (3.5-5.1); Sodium 140 mmol/L (136-145); Total Protein 7.2 g/dL (5.7-8.2)
[2025-06-07 16:50] LABS: Blood Urea Nitrogen 31 mg/dL (9-23); Glucose 69 mg/dL (74-106)
== END 2025-06-07 17:00 | disposition home or self-care (01) ==
LOC: LAB 14:38
PROVIDERS: ATTEND Internal Medicine
DX: I10 Essential (primary) hypertension (principal)
CPT/HCPCS: 36415; 80053; 85025